=== PATIENT | female | born 1990 | race American Indian/Alaskan Native ===

== ENCOUNTER 2019-09-10 15:35 | Emergency (ER) | payer SELFPAY ==
--- NOTE | 2019-09-10 17:37 | Emergency Department Report ---
Blank Doc - Documentation Documentation: The patient was seen in triage for left breast implant pain possible trauma to area. no discharge or fever. Labs/imaging ordered to evaluate for a cause of this complaint. Vital signs reviewed, patient awake and alert in NAD.
--- NOTE | 2019-09-10 20:31 | XRay Report ---
CHEST 2 VIEWS INDICATION: MAIN: chest pain; PAIN IN RIGHT BREAST IMPLANT X 1 MONTH; BREAST IMPLANTS FROM 2017. COMPARISON: None. FINDINGS: Support devices: None. Heart: Within normal limits. Lungs/Pleura: No acute air space or interstitial disease. No significant pleural effusion. IMPRESSION: No acute findings. Signer Name: Ronnie Friedman MD Signed: 09/10/2019 8:27 PM Workstation Name: [id number]
[2019-09-10 20:45] LABS: Basophils % (Auto) 0.5 % (0.0-1.8); Eosinophils # (Auto) 0.1 K/mm3 (0.0-0.4); Eosinophils % (Auto) 1.8 % (0.0-4.3); Hemoglobin 11.9 gm/dl (10.1-14.3); Lymphocytes # (Auto) 2.5 K/mm3 (1.2-5.4); Mean Corpuscular HGB Conc 32 % (30-34); Mean Corpuscular Volume 76 fl (79-97); Monocytes # (Auto) 0.5 K/mm3 (0.0-0.8); Monocytes % (Auto) 5.6 % (0.0-7.3); Platelet Count 248 K/mm3 (140-440); Red Blood Count 4.88 M/mm3 (3.65-5.03); Red Cell Distribution Width 16.5 % (13.2-15.2)
[2019-09-10 21:05] LABS: Alanine Aminotransferase 28 units/L (7-56); Albumin 4.4 g/dL (3.9-5); BUN/Creatinine Ratio 22; Blood Urea Nitrogen 11 mg/dL (7-17); Calcium 9.4 mg/dL (8.4-10.2); Hemolysis Index 19
--- NOTE | 2019-09-10 21:19 | Emergency Department Report ---
ED General Adult HPI - General Chief complaint: Pain General Stated complaint: LEFT BREAST IMPLANT PAIN Time Seen by Provider: 09/10/19 17:35 Source: patient Mode of arrival: Ambulatory Limitations: No Limitations - History of Present Illness Initial comments: Patient is a 29-year-old female with no past medical history presented to the ED with persistent left sided chest pain that radiates to the left arm with tingling sensation for the last 1 week, and worse in the last 2 days. Patient describes the pain as sharp and intermittent and radiates from the left chest wall to the left shoulder and left arm distally, and gets worse with any active range of motion. Patient states that she had a bilateral breast reduction 4 years ago but states that the current pain started over 1 week ago. Patient denies shortness of breath, nausea, vomiting, diaphoresis, headache, cough, dizziness, traumatic injury, change in vision, syncope, abdominal pain, sore throat or nasal and sinus congestion or palpitations. MD Complaint: left chest wall pain -: Sudden, week(s) (1) Location: chest Radiation: extremity (left arm) Severity scale (0 -10): 2 Quality: aching, dull Consistency: intermittent Improves with: none Worsens with: none Associated Symptoms: denies other symptoms, chest pain. denies: confusion, cough, diaphoresis, fever/chills, headaches, loss of appetite, malaise, nausea/vomiting, rash, seizure, shortness of breath, syncope, weakness, other Treatments Prior to Arrival: none - Related Data Previous Rx's Medication Instructions Recorded Last Taken Type Naproxen 500 mg PO Q12H PRN #24 tablet 09/10/19 Unknown Rx Allergies Allergy/AdvReac Type Severity Reaction Status Date / Time No Known Allergies Allergy Verified 09/10/19 15:43 ED Review of Systems ROS: Stated complaint: LEFT BREAST IMPLANT PAIN Other details as noted in HPI Constitutional: denies: chills, fever Eyes: denies: eye pain, eye discharge, vision change ENT: denies: ear pain, throat pain Respiratory: shortness of breath. denies: cough, wheezing Cardiovascular: chest pain (left-sided chest wall pain). denies: palpitations Endocrine: no symptoms reported Gastrointestinal: denies: abdominal pain, nausea, diarrhea Genitourinary: denies: urgency, dysuria, discharge Musculoskeletal: denies: back pain, joint swelling, arthralgia Skin: denies: rash, lesions Neurological: denies: headache, weakness, paresthesias Psychiatric: denies: anxiety, depression Hematological/Lymphatic: denies: easy bleeding, easy bruising ED Past Medical Hx - Past Medical History Previous Medical History?: No - Surgical History Past Surgical History?: Yes Additional Surgical History: breast implant 2016 - Social History Smoking Status: Never Smoker Substance Use Type: Alcohol - Medications Home Medications: Home Medications Medication Instructions Recorded Confirmed Last Taken Type Naproxen 500 mg PO Q12H PRN #24 tablet 09/10/19 Unknown Rx ED Physical Exam - General Limitations: No Limitations General appearance: alert, in no apparent distress - Head Head exam: Present: atraumatic, normocephalic, normal inspection - Eye Eye exam: Present: normal appearance, PERRL, EOMI Pupils: Present: normal accommodation - ENT ENT exam: Present: normal exam, normal orophraynx, mucous membranes moist, TM's normal bilaterally, normal external ear exam - Neck Neck exam: Present: normal inspection, full ROM. Absent: tenderness - Respiratory Respiratory exam: Present: normal lung sounds bilaterally, chest wall tenderness (Palpable reproducible left-sided chest wall tenderness). Absent: respiratory d istress, wheezes, rales, rhonchi, accessory muscle use, decreased breath sounds, prolonged expiratory - Cardiovascular Cardiovascular Exam: Present: regular rate, normal rhythm, normal heart sounds. Absent: systolic murmur, diastolic murmur, rubs, gallop - GI/Abdominal GI/Abdominal exam: Present: soft, normal bowel sounds. Absent: tenderness, guarding, hyperactive bowel sounds, hypoactive bowel sounds, organomegaly - Extremities Exam Extremities exam: Present: normal inspection, full ROM, normal capillary refill - Back Exam Back exam: Present: normal inspection, full ROM, CVA tenderness (L). Absent: tenderness, CVA tenderness (R), muscle spasm, paraspinal tenderness, vertebral tenderness - Neurological Exam Neurological exam: Present: alert, oriented X3, CN II-XII intact, normal gait, reflexes normal - Psychiatric Psychiatric exam: Present: normal affect, normal mood - Skin Skin exam: Present: warm, dry, intact, normal color. Absent: rash ED Course Vital Signs 09/10/19 09/10/19 15:56 17:34 Temperature 97.6 F 97.6 F Pulse Rate 91 H 90 Respiratory 18 18 Rate Blood Pressure 115/66 115/66 O2 Sat by Pulse 99 99 Oximetry ED Medical Decision Making - Lab Data Result diagrams: 09/10/19 20:29 09/10/19 20:29 - EKG Data EKG shows normal: sinus rhythm Rate: normal - EKG Data Interpretation: normal EKG 09/10/19 21:40 EKG shows normal sinus rhythm with ventricular rate of [address] or T wave abnormalities. - Radiology Data Radiology results: report reviewed, image reviewed Chest x-ray shows no acute cardiopulmonary abnormalities or pneumonitis. - Medical Decision Making This is a 29-year-old female with no past medical history presented to the ED with persistent left sided chest pain that radiates to the left arm with tingling sensation for the last 1 week, and worse in the last 2 days. Patient is status post bilateral breast reduction 4 years ago. In the ED, patient is alert and oriented x3 and is not in any distress. The EKG shows normal sinus rhythm with ventricular rate of [address] or T wave abnormalities. Patient's heart score is 0 and she is PERC negative per Wells criteria. Lab test results were reviewed and are all nonactionable including troponin levels. Patient was discharged home on anti-inflammatory medication since the pain in the left chest wall was reproducible by palpation, and therefore the patient symptoms are likely musculoskeletal. Patient was advised to follow-up with her primary care physician in 7 to 10 days for reevaluation or return to the ED immediately if symptoms get worse. Critical care attestation.: If time is entered above; I have spent that time in minutes in the direct care of this critically ill patient, excluding procedure time. ED Disposition Clinical Impression: Left-sided chest wall pain, Anxiety as acute reaction to exceptional stress Disposition: DC-01 TO HOME OR SELFCARE Is pt being admited?: No Does the pt Need Aspirin: No Condition: Stable Instructions: Chest Pain (ED), Muscle Strain (ED), Musculoskeletal Pain (ED) Additional Instructions: All test results are unremarkable. Your symptoms are likely due to acute muscle spasm and muscle strain of your chest wall. Therefore take regular [id number] pain medications or anti-inflammatory medications to help ease the pain. Follow-up with your primary care physician in 7 to 10 days for reevaluation or return to the ED immediately if symptoms get worse. Prescriptions: Naproxen 500 mg PO Q12H PRN #24 tablet PRN Reason: Pain , Severe (7-10) Referrals: [facility] [Outside] - 7-10 days Time of Disposition: 21:16 Print Language: BRITISH
[2019-09-10 23:17] VITALS: BP 118/70
[2019-09-11] MEDS ORDERED: LORazepam 2 MG/ML VIAL ONE (11:33)
[2019-09-11] MEDS ORDERED: HALOPERIDOL LACTATE 5 MG/1 ML INJ ONE (11:33)
== END 2019-09-10 21:45 | disposition home or self-care (01) ==
LOC: ED 15:35
DX: R07.89 Other chest pain (principal); F41.9 Anxiety disorder, unspecified
CPT/HCPCS: 36415; 71046; 80053; 84484; 85025; 93005; 93010; J1630; J2060

== ENCOUNTER 2021-06-14 04:43 | Emergency (ER) | payer MEDICAID ==
--- NOTE | 2021-06-14 06:53 | Emergency Department Report ---
ED ENT HPI - General Chief complaint: Dental/Oral Stated complaint: TOOTHACHE Time Seen by Provider: 06/14/21 06:42 Source: patient Mode of arrival: Ambulatory Limitations: No Limitations - History of Present Illness Initial comments: Patient presents with a several day history of dental pain. This is primarily on the right. She states it is a constant and aching pain in the right mandibular area. It radiates upward into the ear area. She has no trauma. There is no fevers or chills. She states that her teeth are not temperature sensitive. One tooth is cracked. She tried to see a dentist, but not are taking her insurance. Patient does state that she had seen the dentist later in the course and was given Tylenol 3 and penicillin. She took this for 1 day. It does not help. She has only taken 1 dose of antibiotics and 1 dose of Tylenol with codeine. Patient came in for evaluation and treatment because of this. She does describe taking ibuprofen [id number]. She has no fevers or chills per there is no cough congestion. Again, there is no trauma. Pain is worsened by movement and palpation and by eating. - Related Data Previous Rx's Medication Instructions Recorded Last Taken Type Acetaminophen/Codeine [Tylenol 1 tab PO Q6H PRN #12 tab 06/14/21 Unknown Rx /Codeine # 3 tab] Clindamycin [Clindamycin CAP] 300 mg PO Q8H #21 cap 06/14/21 Unknown Rx Allergies Allergy/AdvReac Type Severity Reaction Status Date / Time No Known Allergies Allergy Verified 09/11/19 11:36 ED Dental HPI - General Chief complaint: Dental/Oral Stated complaint: TOOTHACHE Time Seen by Provider: 06/14/21 06:42 Source: patient Mode of arrival: Ambulatory Limitations: No Limitations - Related Data Previous Rx's Medication Instructions Recorded Last Taken Type Acetaminophen/Codeine [Tylenol 1 tab PO Q6H PRN #12 tab 06/14/21 Unknown Rx /Codeine # 3 tab] Clindamycin [Clindamycin CAP] 300 mg PO Q8H #21 cap 06/14/21 Unknown Rx Allergies Allergy/AdvReac Type Severity Reaction Status Date / Time No Known Allergies Allergy Verified 09/11/19 11:36 ED Review of Systems ROS: Stated complaint: TOOTHACHE Other details as noted in HPI Comment: All other systems reviewed and negative Constitutional: denies: fever Eyes: denies: vision change ENT: denies: throat pain Respiratory: denies: cough Cardiovascular: denies: chest pain Endocrine: denies: unexplained weight loss Gastrointestinal: denies: abdominal pain Genitourinary: denies: dysuria Musculoskeletal: denies: back pain Skin: denies: rash Neurological: denies: headache Hematological/Lymphatic: denies: easy bruising ED Past Medical Hx - Past Medical History Previous Medical History?: No - Surgical History Past Surgical History?: Yes Additional Surgical History: breast implant 2017 - Family History Family history: no significant - Social History Smoking Status: Never Smoker Substance Use Type: Alcohol - Medications Home Medications: Home Medications Medication Instructions Recorded Confirmed Last Taken Type Acetaminophen/Codeine [Tylenol 1 tab PO Q6H PRN #12 tab 06/14/21 Unknown Rx /Codeine # 3 tab] Clindamycin [Clindamycin CAP] 300 mg PO Q8H #21 cap 06/14/21 Unknown Rx ED Physical Exam - General Limitations: No Limitations, Other (Pulse ox noted and normal) General appearance: alert, in no apparent distress - Head Head exam: Present: atraumatic, normocephalic, other (No facial edema) - Eye Eye exam: Present: normal appearance, EOMI - ENT ENT exam: Present: normal orophraynx, other (There is dental tenderness diffusely involving the right mandibular teeth. There is no gingival erythema or warmth. There is no evidence of obvious dental fracture.) - Neck Neck exam: Present: normal inspection. Absent: meningismus - Respiratory Respiratory exam: Absent: respiratory distress, stridor - Cardiovascular Cardiovascular Exam: Present: other (Normal pulses) - Extremities Exam Extremities exam: Present: normal capillary refill - Back Exam Back exam: Present: full ROM - Neurological Exam Neurological exam: Present: alert, oriented X3, CN II-XII intact, normal gait - Psychiatric Psychiatric exam: Present: normal affect, normal mood - Skin Skin exam: Present: warm, dry ED Course Vital Signs 06/14/21 04:46 Temperature 97.8 F Pulse Rate 80 Respiratory 18 Rate Blood Pressure 128/76 O2 Sat by Pulse 98 Oximetry - Reevaluation(s) Reevaluation #1: 06/14/21 06:50 Patient was treated and released. Old records reviewed. ED Medical Decision Making - Medical Decision Making Patient presents with dentalgia. She was on penicillin for 1 day. Whether she needs clindamycin is somewhat unknown. This could certainly be an anaerobic infection. We have added clindamycin. Patient has been given dental balls for analgesia. We will not provide any further medication here. She states that she will go see a dentist in follow-up. She is encouraged to use ibuprofen [id number]. She does not have evidence of a buccal cellulitis or drainable abscess. There is no airway compromise or involvement. Critical Care Time: No Critical care attestation.: If time is entered above; I have spent that time in minutes in the direct care of this critically ill patient, excluding procedure time. ED Disposition Clinical Impression: Apical alveolar abscess, Dentalgia Disposition: HOME / SELF CARE / HOMELESS Is pt being admited?: No Condition: Stable Instructions: Dental Abscess, Preventive Dental Care, Adult Additional Instructions: Have a soft diet. Drink plenty water. Return for problems. Continue to take ibuprofen [id number]. See a dentist as soon as possible. Take all of the antibiotics as prescribed. Prescriptions: Clindamycin [Clindamycin CAP] 300 mg PO Q8H #21 cap Acetaminophen/Codeine [Tylenol /Codeine # 3 tab] 1 tab PO Q6H PRN #12 tab PRN Reason: Pain , Severe (7-10) Referrals: PRIMARY MD [facility] [Primary Care Provider] - 3-5 Days OLEG ARGUETA MD [Staff Physician] - 3-5 Days
[2021-06-14] MEDS ORDERED: diphenhydrAMINE 25 MG/10 ML ORAL LIQUID PO ONE (06:59)
[2021-06-14] MEDS ORDERED: ALUM-MAG HYDROXIDE-SIMETHICONE 200-200-20MG/5ML ORAL LIQD 30 ML TP ONE (07:05)
[2021-06-14] MEDS ORDERED: LIDOCAINE VISCOUS 2% 15 ML ORAL LIQD ONE (07:30)
[2021-06-14] MEDS ORDERED: LIDOCAINE 2% JELLY 30 ML TP SCH (07:30)
[2021-06-14 07:53] VITALS: BP 115/80
== END 2021-06-14 07:53 | disposition home or self-care (01) ==
LOC: ED 04:43
DX: K04.7 Periapical abscess without sinus (principal); K08.89 Other specified disorders of teeth and supporting structures; Z98.82 Breast implant status
CPT/HCPCS: 99282; Q0163